=== PATIENT | male | born 1955 | race Caucasian/White ===

== ENCOUNTER 2019-11-16 06:27 | Day surgery (SDC) | payer OTHER, BC ==
[~2019-11-16] VITALS: Ht 172.7 cm; Wt 78.0 kg
--- NOTE | ~2019-11-16 | O ---
[facility] [place] [address] OPERATIVE REPORT Name: PORTER MONROE Room #: 150-5 [facility]#: [id number] Admission: 11/16/19 Attend Phys: Anthony Edward MD Discharge: Date of : 51 Report #: [id number] THIS REPORT FOR: cc: Hira Mcmahan MD,Hira Edward,Anthony Adams MD ~ THIS REPORT FOR: //name// CC: Hira Edward DATE OF SERVICE: 11/16/2019 SURGEON: Anthony Edward MD CLINICAL INVESTIGATOR: None. PREOPERATIVE DIAGNOSIS: Bilateral lower lid ectropion. POSTOPERATIVE DIAGNOSIS: Bilateral lower lid ectropion. OPERATION PERFORMED: Bilateral lower lid ectropion repair. ANESTHESIA: Local with IV sedation. COMPLICATIONS: None. INDICATIONS FOR PROCEDURE: This patient has bilateral acquired lower lid ectropion with chronic tearing, keratopathy and discharge. The current procedures are undertaken in order to improve the patient's visual function, lacrimal outflow, and level of comfort. Informed consent was obtained to include but not limit to the risk of loss of vision, bleeding, infection, scarring, failure to improve the problem and need for further surgery. DESCRIPTION OF OPERATION: The patient was taken to the operating room where 2% Xylocaine with epinephrine mixed with equal parts of 0.75% Marcaine with Wydase was administered transcutaneously and transconjunctivally to each lower lid and lateral canthal area. The patient was then prepped and draped in the usual sterile fashion. A Jaylen clamp was then used to clamp the left lateral canthus following which a sharp canthotomy and cantholysis were performed. The tarsal strip was prepared laterally, removing the lash bearing portion of the redundant lid margin and the redundant tarsal plate. Hemostasis was achieved with a monopolar cautery, as it was throughout the case. The tarsal strip was then secured to the internal portion of the lateral orbital tubercle with two [facility] [address] [place] [address] OPERATIVE REPORT Name: PORTER MONROE Room #: 150-5 [facility]#: [id number] Admission: 11/16/19 Attend Phys: Anthony Edward MD Discharge: Date of : 51 Report #: [id number] interrupted 5-0 Prolene sutures. The lateral canthal angle was sharply reformed as the subcutaneous structures and the skin were closed with multiple interrupted 6-0 plain gut sutures. Attention was then turned to the right side where the same procedure was performed. The wounds were cleaned and dressed with ophthalmic antibiotic ointment. The patient was then transported to the recovery area, having tolerated the procedure well with no anesthetic or operative complications being noted. By: [id number] Anthony Edward MD /nt
[~2019-11-16 06:27] MED LIST: COQ-10100 MG PO; FISH OIL 1,0001 EAC1 PO; FLOMAX0.4 MG PO; LIPITOR40 MG PO; MULTIVITAMINS1 EAC7 PO
[2019-11-16 08:06] VITALS: BP 122/64
== END 2019-11-16 10:10 | disposition home or self-care (01) ==
LOC: EDSEX → OR 06:27 → TBA 06:52 → OR 08:58
DX: H02.105 Unspecified ectropion of left lower eyelid (principal); H02.102 Unspecified ectropion of right lower eyelid; E78.00 Pure hypercholesterolemia, unspecified; Z98.890 Other specified postprocedural states; Z79.899 Other long term (current) drug therapy; Z87.891 Personal history of nicotine dependence
CPT/HCPCS: 50010; 50101; 50386; 50398; 51636; 56527; 56531; 62110; 62850; 70005